=== PATIENT | female | born 1985 | race Caucasian/White ===

== ENCOUNTER 2024-03-01 15:16 | Emergency (ER) | payer MEDICAID ==
[~2024-03-01] VITALS: Ht 167.6 cm; Wt 59.1 kg
[2024-03-01 15:35] VITALS: BP 111/72; PULSE 105; TEMP 98.3
[2024-03-01] MEDS ORDERED: Ketorolac 15 MG/ML VIAL IV ONE (16:00)
[2024-03-01] MEDS ORDERED: Ondansetron 4 MG/2 ML VIAL IV ONE (16:00)
[2024-03-01] MEDS ORDERED: NS 1,000 ML IV ONE (16:00)
[2024-03-01] MEDS ORDERED: Iohexol 300 - 100 ML VIAL IV ONE (16:22)
[2024-03-01] MEDS ORDERED: NS 100 ML IV SCH (16:22)
[2024-03-01 17:38] LABS: PH 6.5 (5.0-8.5); URINE APPEARANCE CLEAR (CLEAR/HAZY); URINE BLOOD 3+ (NEGATIVE); URINE COLOR YELLOW (YELLOW); URINE GLUCOSE NEGATIVE (NEGATIVE); URINE KETONE TRACE (NEGATIVE); URINE NITRATE NEGATIVE (NEGATIVE); URINE PROTEIN(semi-quant) TRACE (NEGATIVE); URINE UROBILINOGEN 0.2 E.U/dL (0.2-1.0)
[2024-03-01 17:53] LABS: COLLECTION METHOD CLEAN CATCH
== END 2024-03-01 18:40 | disposition home or self-care (01) ==
LOC: COL.ER 15:16
PROVIDERS: Physician Assistant
DX: M54.50 Low back pain, unspecified (principal)
CPT/HCPCS: J1885; J7030; Q9967